=== PATIENT | female | born 1965 | race Asian ===

== ENCOUNTER 2017-10-29 23:33 | Emergency (ER) | payer OTHER ==
[2017-10-30 00:15] LABS: KETONE, URINE AUTO RFX NEGATIVE (NEGATIVE); NITRITE, URINE AUTO RFX NEGATIVE (NEGATIVE); RBC, URINE AUTO RFX 0 /HPF (0-3); SPECIFIC GRAVITY UR AUTO RFX 1.001 (1.002-1.035); SQUAM EPITHELIAL CELL UR AURFX 0 /HPF (0-6); WBC, URINE AUTO RFX 6 /HPF (0-3)
[2017-10-30 00:23] LABS: LEUKOCYTE ESTERASE UR AUTO RFX 3+ (NEGATIVE)
[2017-10-30] MEDS: PHENAZOPYRIDINE 100 MG TAB PO (02:30)
[2017-10-30] MEDS: CIPROFLOXACIN 500 MG TAB PO (02:30)
== END 2017-10-30 02:45 | disposition home or self-care (01) ==
LOC: M ED 23:33
DX: N39.0 Urinary tract infection, site not specified (principal); Z87.440 Personal history of urinary (tract) infections; Z79.899 Other long term (current) drug therapy
CPT/HCPCS: 81001

== ENCOUNTER 2018-12-08 21:45 | Emergency (ER) | payer OTHER ==
[~2018-12-08] VITALS: Ht 157.5 cm; Wt 57.3 kg
[~2018-12-08 21:45] MED LIST: AFRI0.056; AUGM875T28 PO; CIPR-249 PO; FLON1SPR; GLIP5TAB8 PO; JANU50TA25 PO; LOSA25TA14 PO; MECL-68 PO; PYRI1TAB5 PO; SUDA30TA PO
[2018-12-08 21:46] VITALS: BP 165/90
[2018-12-08] MEDS ORDERED: SIMV40TA2 PO (21:50)
[2018-12-08] MEDS ORDERED: VITAD1000T PO (21:50)
[2018-12-08] MEDS ORDERED: CIPR-249 PO (22:27)
[2018-12-08] MEDS ORDERED: PYRI1TAB5 PO (22:27)
[2018-12-08] MEDS ORDERED: PHENAZOPYRIDINE 100 MG TAB PO ONE (22:30)
[2018-12-08] MEDS ORDERED: CIPROFLOXACIN 500 MG TAB PO ONE (22:30)
== END 2018-12-08 22:35 | disposition home or self-care (01) ==
LOC: M ED 21:45
DX: N39.0 Urinary tract infection, site not specified (principal); Z79.84 Long term (current) use of oral hypoglycemic drugs; Z79.899 Other long term (current) drug therapy

== ENCOUNTER 2018-12-19 21:04 | Emergency (ER) | payer OTHER ==
[~2018-12-19] VITALS: Ht 162.6 cm; Wt 57.3 kg
[~2018-12-19 21:04] MED LIST changes: +SIMV40TA2 PO; +VITAD1000T PO
[2018-12-19] MEDS ORDERED: MACR100C43 PO (22:08)
[2018-12-19] MEDS ORDERED: PYRI1TAB5 PO (22:08)
[2018-12-19] MEDS ORDERED: PHENAZOPYRIDINE 100 MG TAB PO ONE (22:15)
[2018-12-19] MEDS ORDERED: NITROFURANTOIN (MACROBID) 100 MG CAP PO ONE (22:15)
[2018-12-19 22:29] VITALS: BP 130/75
== END 2018-12-19 22:30 | disposition home or self-care (01) ==
LOC: M ED 21:04
DX: N39.0 Urinary tract infection, site not specified (principal); E11.9 Type 2 diabetes mellitus without complications; I10 Essential (primary) hypertension; Z79.899 Other long term (current) drug therapy

== ENCOUNTER 2019-03-06 09:32 | Emergency (ER) | payer OTHER ==
[~2019-03-06] VITALS: Ht 154.9 cm; Wt 67.7 kg
[~2019-03-06 09:32] MED LIST changes: +MACR100C43 PO
[2019-03-06 11:57] LABS: BASO # 0.1 10^3/uL (0.0-0.2); BASO % 0.5 % (0.0-1.0); EOS # 0.2 10^3/uL (0.0-0.50); EOS % 1.4 % (0.0-3.0); HEMATOCRIT 34.4 % (36.0-47.0); HEMOGLOBIN 10.6 g/dl (12.0-15.5); LYMPH # 2.7 10^3/uL (1.5-4.5); LYMPH % 19.4 % (24.0-44.0); MEAN CORPUSCULAR HGB CONC 30.8 g/dl (32.0-36.5); MEAN CORPUSCULAR VOLUME 64.8 fl (80.0-96.0); MONO # 0.7 10^3/uL (0.0-0.8); MONO % 5.2 % (0.0-5.0); NEUTROPHILS # 10.2 10^3/uL (1.8-7.7); NEUTROPHILS % 73.2 % (36.0-66.0); PLATELET COUNT, AUTOMATED 422 10^3/uL (150-450); RED BLOOD COUNT 5.31 10^6/uL (4.00-5.40)
[2019-03-06 12:27] LABS: AMYLASE 71 U/L (25-115); BLOOD UREA NITROGEN 15 MG/DL (7-18); CALCIUM LEVEL 9.7 MG/DL (8.5-10.1); CARBON DIOXIDE LEVEL 27 MEQ/L (21-32); CHLORIDE LEVEL 104 MEQ/L (98-107); CREATININE FOR GFR 0.99 MG/DL (0.55-1.30); GLOMERULAR FILTRATION RATE > 60.0 (>51); GLUCOSE, FASTING 132 MG/DL (70-100); LIPASE 300 U/L (73-393); POTASSIUM SERUM 4.6 MEQ/L (3.5-5.1); SODIUM LEVEL 140 MEQ/L (136-145)
[2019-03-06] MEDS ORDERED: KETOROLAC 30 MG/ML VIAL (J1885) IV ONE (14:15)
[2019-03-06] MEDS ORDERED: NS 1,000 ML IV ONE (14:15)
--- NOTE | 2019-03-06 14:42 | REP ---
CT ABDOMEN AND PELVIS WITHOUT CONTRAST: CT abdomen and pelvis performed without oral or IV contrast. Sagittal and coronal reconstruction images are performed. Visualized lung bases demonstrate no infiltrate. Liver demonstrates diffuse fatty infiltration. Gallbladder is grossly unremarkable. Spleen, adrenals and pancreas are grossly unremarkable. Right kidney demonstrates no hydronephrosis or nephrolithiasis. Left kidney demonstrates an intrarenal calculus in the lower pole collecting system which measures approximately 3 mm. There is moderate left hydroureteronephrosis caused by a calculus at the left ureterovesical junction which measures about 8 mm in maximum diameter. There is no other evidence of bladder calculus. There is no abdominal aortic aneurysm. There is no adenopathy. There is no free air or free fluid. Scattered diverticula are seen throughout the colon. There is no evidence of appendicitis. No pelvic mass is seen. IMPRESSION: There is an 8 mm calculus at the left ureterovesical junction causing moderate left hydroureteronephrosis. There is also an intrarenal calculus in the lower pole of the left kidney 3 mm in diameter. No other acute finding. Electronically Signed by Dayday Canela MD 03/07/2019 12:02 A
[2019-03-06] MEDS ORDERED: FLOM0.4C39 PO (15:00)
[2019-03-06] MEDS ORDERED: KETO10TAB PO (15:00)
[2019-03-06] MEDS ORDERED: MACR100C43 PO (15:13)
[2019-03-06] MEDS ORDERED: NORC1TAB7 PO (15:27)
[2019-03-06] MEDS ORDERED: TAMSULOSIN 0.4 MG CAP PO ONE (15:30)
[2019-03-06] MEDS ORDERED: NITROFURANTOIN (MACROBID) 100 MG CAP PO ONE (15:30)
[2019-03-06 16:18] VITALS: BP 167/82
== END 2019-03-06 16:22 | disposition home or self-care (01) ==
LOC: M ED 09:32
DX: N20.1 Calculus of ureter (principal); N13.39 Other hydronephrosis; Z87.442 Personal history of urinary calculi; I10 Essential (primary) hypertension; E78.00 Pure hypercholesterolemia, unspecified; Z87.440 Personal history of urinary (tract) infections; Z79.899 Other long term (current) drug therapy
CPT/HCPCS: 74176; 80048; 81001; 82150; 83690; 85025; 96361; 96374; 99284; J1885

== ENCOUNTER 2019-04-15 06:02 | Day surgery (SDC) | payer OTHER ==
[~2019-04-15] VITALS: Ht 154.9 cm; Wt 57.5 kg
[~2019-04-15 06:02] MED LIST changes: +CHOL100029 PO; +FLOM0.4C39 PO; +KETO10TAB PO; +LR 1,000 ML IV ONE; -MECL-68 PO; +MECL1TAB31 PO; +NORC1TAB7 PO; -SIMV40TA2 PO; +SIMV40TA20 PO; -VITAD1000T PO; +ceFAZolin SOD 2 GM in IV 1 EA IV ONE
[2019-04-15] MEDS ORDERED: propofoL 200 MG/20 ML VIAL As Ordered ONE (06:56)
[2019-04-15] MEDS ORDERED: ONDANSETRON 4MG/2ML VIAL (J2405) As Ordered ONE (06:56)
[2019-04-15] MEDS ORDERED: LIDOCAINE 2% INJ 100 MG/5 ML SDV (FOR ANES.) As Ordered ONE (06:56)
[2019-04-15] MEDS ORDERED: dexameTHASONE 4 MG/ML 1ML VIAL (J1100) As Ordered ONE ×2 (06:56→08:19)
[2019-04-15] MEDS ORDERED: propofoL 500 MG/50 ML VIAL As Ordered ONE (06:59)
[2019-04-15] MEDS ORDERED: fentaNYL 100 MCG/2 ML INJECTION (J3010) As Ordered ONE ×3 (06:59→09:10)
[2019-04-15] MEDS ORDERED: CONRAY-60 60% 50ML VIAL (Q9961) As Ordered ONE (07:07)
[2019-04-15] MEDS ORDERED: MIDAZOLAM INJ 2 MG/2 ML VIAL (J2250) As Ordered ONE (07:28)
[2019-04-15] MEDS ORDERED: PYRI1TAB5 PO (08:21)
[2019-04-15] MEDS ORDERED: OXYC1TAB23 PO (08:21)
[2019-04-15] MEDS ORDERED: BACT800T5 PO (08:21)
[2019-04-15] MEDS ORDERED: PERCOCET 5MG/325MG TAB As Ordered ONE ×2 (08:40→10:21)
[2019-04-15] MEDS: fentaNYL 100 MCG/2 ML INJECTION (J3010) IV PRN ×8 (08:42→09:28)
[2019-04-15] MEDS ORDERED: PERCOCET 5MG/325MG TAB PO PRN ×2 (09:00→10:30)
[2019-04-15] MEDS ORDERED: METOCLOPRAMIDE INJ 10MG/2ML VIAL (J2765) IV PRN (09:00)
[2019-04-15] MEDS ORDERED: ONDANSETRON 4MG/2ML VIAL (J2405) IV PRN (09:00)
[2019-04-15] MEDS ORDERED: MEPERIDINE INJ 25 MG/ML VIAL (J2175) IV PRN (09:00)
[2019-04-15] MEDS ORDERED: LR 1,000 ML IV SCH (09:00)
[2019-04-15 10:47] VITALS: BP 170/81
--- NOTE | 2019-04-15 20:32 | RO ---
DATE OF PROCEDURE: 04/15/2019 PREPROCEDURE DIAGNOSIS: Left ureteral and left renal stones. POSTPROCEDURE DIAGNOSIS: Left renal stone. PROCEDURE: Left ureteroscopic stone extraction. SURGEON: Daryn Warren MD [employer]: ANESTHESIA: General. INDICATION: This 53-year-old lady presented with left-sided colicky pain and was found to have an 8 mm ureterovesical junction stone and a 3 mm left lower pole stone. She, when I asked her this morning, said she had not passed the stone, although postoperatively her said she may have passed it. She has not had a great deal of urgency and frequency and her only pain in recent days has been on the right side with movement related low back pain. She does have a 3 mm left lower pole stone on CT scan. DESCRIPTION OF PROCEDURE: After obtaining informed consent from the patient, she was taken to the operating room where after sufficient anesthetic, she was prepped and draped in the usual manner. The 22-Ind[place]ian diagnostic cystoscope was advanced to the bladder and the bladder inspected. No stones were seen. A wire was negotiated to the kidney under fluoroscopic control. The rigid mini ureteroscope was advanced alongside the wire. No stone was encountered. We took the Olympus flexible ureteroscope up to the kidney and inspected all calyces. The 3 mm stone in the left lower pole and attached to one of the papilla was noted. We were able to grasp this with a 1.9 Indonesian basket and withdraw without difficulty, the ureter having previously been dilated from the distal stone. Because of minimal reaction, we elected not to leave a stent. The bladder was emptied, the patient to recovery in satisfactory condition. The stone was sent for analysis. DISPOSITION: The patient is dismissed home to followup as scheduled on 04/22/2019. Medications: Percocet one by mouth every 4 hours as needed for pain, Septra DS one by mouth twice a day, Pyridium 200 mg three times a day pain, dysuria. Fluids encouraged. Limited activity. It was felt she would do quite well without a stent. Stone analysis pending.
[2019-04-26 10:07] LABS: Ca Ox Monohydrate 93 % (.); Size 3x3x3 mm (.)
== END 2019-04-15 10:47 | disposition home or self-care (01) ==
LOC: M SDC 06:02
PROVIDERS: ATTEND Urology
DX: N20.0 Calculus of kidney (principal); N20.1 Calculus of ureter; I10 Essential (primary) hypertension; E78.5 Hyperlipidemia, unspecified; E11.9 Type 2 diabetes mellitus without complications; D64.9 Anemia, unspecified; Z79.899 Other long term (current) drug therapy; Z79.84 Long term (current) use of oral hypoglycemic drugs
CPT/HCPCS: 52352; 74420; 80048; 82360; 85027; 88300; 99284; C1769; J0690; J2250; J2405; J3010; Q9961

== ENCOUNTER 2019-04-15 20:02 | Emergency (ER) | payer OTHER ==
[~2019-04-15] VITALS: Ht 154.9 cm; Wt 57.3 kg
[~2019-04-15 20:02] MED LIST changes: +BACT800T5 PO; -LR 1,000 ML IV ONE; +MECL-68 PO; -MECL1TAB31 PO; +OXYC1TAB23 PO; +SIMV40TA2 PO; -SIMV40TA20 PO; -ceFAZolin SOD 2 GM in IV 1 EA IV ONE
[2019-04-15] MEDS ORDERED: NS 1,000 ML IV ONE (21:00)
[2019-04-15] MEDS ORDERED: ONDANSETRON 4MG/2ML VIAL (J2405) IV ONE (21:00)
[2019-04-15] MEDS ORDERED: MORPHINE 2 MG/ML 1ML SYRINGE (J2270) IV ONE (21:00)
[2019-04-15 22:10] LABS: HEMOGLOBIN 9.2 g/dl (12.0-15.5); MEAN CORPUSCULAR HEMOGLOBIN 19.9 pg (27.0-33.0); MEAN CORPUSCULAR HGB CONC 30.7 g/dl (32.0-36.5); MEAN CORPUSCULAR VOLUME 64.8 fl (80.0-96.0); PLATELET COUNT, AUTOMATED 365 10^3/uL (150-450); RED BLOOD COUNT 4.63 10^6/uL (4.00-5.40); WHITE BLOOD COUNT 16.2 10^3/uL (4.0-10.0)
[2019-04-15 22:37] LABS: BLOOD UREA NITROGEN 15 MG/DL (7-18); CALCIUM LEVEL 9.1 MG/DL (8.5-10.1); CARBON DIOXIDE LEVEL 24 MEQ/L (21-32); CHLORIDE LEVEL 99 MEQ/L (98-107); CREATININE FOR GFR 0.85 MG/DL (0.55-1.30); GLOMERULAR FILTRATION RATE > 60.0 (>51); GLUCOSE, FASTING 161 MG/DL (70-100); POTASSIUM SERUM 4.9 MEQ/L (3.5-5.1); SODIUM LEVEL 133 MEQ/L (136-145)
[2019-04-15 23:25] VITALS: BP 166/86
== END 2019-04-15 23:30 | disposition home or self-care (01) ==
LOC: M ED 20:02
DX: R11.2 Nausea with vomiting, unspecified (principal); E11.9 Type 2 diabetes mellitus without complications; I10 Essential (primary) hypertension; E78.5 Hyperlipidemia, unspecified; Z87.442 Personal history of urinary calculi; Z79.899 Other long term (current) drug therapy

== ENCOUNTER → 2021-03-14 | Outpatient (CLI) | payer OTHER ==
[~2021-03-14] MED LIST changes: -MECL-68 PO; +MECL1TAB31 PO; -SIMV40TA2 PO; +SIMV40TA20 PO
--- NOTE | 2021-03-15 06:40 | ECHO ---
ECHOCARDIOGRAM DATE OF PROCEDURE: 03/14/2021 Age: 55 Gender: Female Height: 60 inches Weight: 121 pounds Body Surface Area: 1.5 m2 PATIENT LOCATION: Outpatient. REFERRING PHYSICIAN: Joni Blackwell DO INDICATION: Heart murmur. MEASUREMENTS: 2D Measurements: RV 3.4 cm LV 4.2 cm Septum 1.0 cm Posterior wall 1.0 cm Aortic Root 3.4 cm LA 3.6 cm LVEF 75% Doppler Measurements: AV 1.1 m/s LVOT 0.9 m/s LVOT diameter 1.8 cm MV-E 69, A 77, E/A ratio 0.9 Early mitral deceleration time 172 msec E prime medial 5.6, A prime medial 10, E prime lateral 7 Average E/E prime ratio 11/PCWP 15.5 mmHg PV 0.8 m/s Pulmonary artery acceleration time 120 msec PASP 28 mmHg IVC 1.4 cm COMMENTS: Normal sinus rhythm without intraventricular conduction disturbance. M-mode and two-dimensional echocardiography was performed with pulse, continuous wave, color flow, and tissue Doppler studies. Normal left ventricular size, wall thickness and hyperkinetic wall motion. Normal left atrial size with Grade 1 LV diastolic dysfunction but currently normal estimated mean left atrial pressure. Normal right heart chamber sizes and motion and estimated pulmonary arterial pressure. Somewhat reduced IVC size with complete collapse suggestive of a low central venous pressure. Normal aortic root size. Normal appearing aortic valve with three equal size cusps with normal cusp separation. Trace aortic insufficiency. Normal appearing mitral valvular apparatus without functional abnormality. Normal appearing tricuspid valve with trace (physiologic) insufficiency. No apparent cardiac mass or pericardial effusion. Her heart murmur is believed to be physiologic/flow related. MTDD
== END ==
LOC: M CARPUL 13:31
PROVIDERS: ATTEND Emergency Medicine
DX: R01.1 Cardiac murmur, unspecified (principal)

== ENCOUNTER → 2022-09-11 | Outpatient (CLI) | payer OTHER ==
[~2022-09-11] MED LIST changes: +LOSA25TA13 PO; -LOSA25TA14 PO
== END ==
LOC: M WHC 06:50
PROVIDERS: ATTEND Student in an Organized Health Care Education/Training Program
DX: Z12.31 Encounter for screening mammogram for malignant neoplasm of breast (principal)

== ENCOUNTER → 2022-10-15 | Outpatient (REF) | payer OTHER | LOC: M LAB REF 16:30 | PROVIDERS: ATTEND Ophthalmology | DX: H02.824 Cysts of left upper eyelid (principal); L91.8 Other hypertrophic disorders of the skin ==

== ENCOUNTER → 2023-11-05 | Outpatient (CLI) | payer OTHER ==
[~2023-11-05] MED LIST changes: +GLIP5TAB17 PO; -GLIP5TAB8 PO; +MECL-209 PO; -MECL1TAB31 PO
== END ==
LOC: M WHC 09:02
PROVIDERS: ATTEND Family Medicine
DX: Z12.31 Encounter for screening mammogram for malignant neoplasm of breast (principal)

== ENCOUNTER 2025-02-22 08:25 | Day surgery (SDC) | payer OTHER ==
[~2025-02-22] VITALS: Ht 154.9 cm; Wt 51.5 kg
[~2025-02-22 08:25] MED LIST changes: +ATOR40TA75 PO; -FLOM0.4C39 PO; +JARD1TAB PO; +METF-414 PO; +SEMA14TA2 PO; +TAMS-18 PO; +VITA100093 PO
[2025-02-22] MEDS ORDERED: LIDOCAINE 2% 100 MG/5 ML SDV (FOR ANES.) As Ordered ONE (09:59)
[2025-02-22 10:23] VITALS: TEMP 97.5
[2025-02-22 10:40] VITALS: BP 117/73; O2SAT 99
== END 2025-02-22 10:47 | disposition home or self-care (01) ==
LOC: M OPP 08:25
PROVIDERS: ATTEND Surgery
DX: Z12.11 Encounter for screening for malignant neoplasm of colon (principal); D12.7 Benign neoplasm of rectosigmoid junction; D12.5 Benign neoplasm of sigmoid colon; K64.4 Residual hemorrhoidal skin tags; K57.30 Diverticulosis of large intestine without perforation or abscess without bleeding; Z91.048 Other nonmedicinal substance allergy status; Z79.84 Long term (current) use of oral hypoglycemic drugs; Z79.899 Other long term (current) drug therapy

== ENCOUNTER 2025-07-10 19:00 | Emergency (ER) | payer OTHER ==
[~2025-07-10] VITALS: Ht 154.9 cm; Wt 53.4 kg
[2025-07-10 19:39] LABS: KETONE, URINE AUTO RFX NEGATIVE (NEGATIVE); MUCUS, URINE RFX SMALL (NEGATIVE); NITRITE, URINE AUTO RFX NEGATIVE (NEGATIVE); RBC, URINE AUTO RFX 100 /HPF (0-3); SQUAM EPITHELIAL CELL UR AURFX 1 /HPF (0-6)
[2025-07-10 19:40] LABS: LEUKOCYTE ESTERASE UR AUTO RFX 3+ (NEGATIVE); WBC, URINE AUTO RFX TNTC /HPF (0-3)
[2025-07-10] MEDS ORDERED: CEFD300CAP PO (21:23)
[2025-07-10] MEDS: CEFDINIR 300 MG CAP PO ONE (21:25)
[2025-07-10] MEDS ORDERED: PYRI1TAB5 PO (21:30)
[2025-07-10] MEDS: PHENAZOPYRIDINE 100 MG TAB PO ONE (21:34)
[2025-07-10 21:36] VITALS: BP 135/74; TEMP 98.1; O2SAT 99
== END 2025-07-10 21:37 | disposition home or self-care (01) ==
LOC: M ED 19:00
DX: N30.00 Acute cystitis without hematuria (principal); E11.9 Type 2 diabetes mellitus without complications; I10 Essential (primary) hypertension; E78.5 Hyperlipidemia, unspecified; Z91.09 Other allergy status, other than to drugs and biological substances; Z79.2 Long term (current) use of antibiotics; Z79.84 Long term (current) use of oral hypoglycemic drugs; Z79.899 Other long term (current) drug therapy